=== PATIENT | female | born 1995 | race Caucasian/White ===

== ENCOUNTER 2016-08-30 13:22 | Emergency (ER) | payer OTHER ==
[2016-08-30 13:38] VITALS: BP 118/62
--- NOTE | 2016-08-30 13:59 | ER Document Report ---
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 She was seen at [facility] There is no saddle anesthesia , there is some discomfort in the posterior aspect of both thighs. I saw her get up out of the chair and she is slow and moves deliberately bent over slightly from the waist. I have greeted and performed a rapid initial assessment of this patient. A comprehensive ED assessment, evaluation of the patient, analysis of test results , and completion of the medical decision making process will be contacted by additional ED providers. TRAVEL OUTSIDE OF THE [place] IN LAST 30 DAYS: No - Related Data Allergies/Adverse Reactions: ceftriaxone sodium [From Rocephin] Allergy (Verified 11/03/15 03:02) Sulfa (Sulfonamide Antibiotics) Allergy (Verified 11/03/15 03:02) Physical Exam - Vital signs Vitals: Temp Pulse Resp BP Pulse Ox 98.0 F 73 14 118/62 98 08/30/16 13:37 08/30/16 13:37 08/30/16 13:37 08/30/16 13:37 08/30/16 13:37 Course - Vital Signs Vital signs: Temp Pulse Resp BP Pulse Ox 98.0 F 73 14 118/62 98 08/30/16 13:37 08/30/16 13:37 08/30/16 13:37 08/30/16 13:37 08/30/16 13:37
--- NOTE | 2016-08-30 16:51 | ER Document Report ---
[id number] PAIN Mode of Arrival: Ambulatory Notes: The patient is a 21-year-old female who presents with 2 weeks of right lower back pain. She was seen at [facility] and she is following up with physical therapy. She is taking Naprosyn and Robaxin with some relief of her symptoms, but her pain is still present. 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 She denies any new injuries, fevers, IVDA, saddle anesthesia, change in bowel or bladder, urinary symptoms, numbness or tingling. TRAVEL OUTSIDE OF THE [place] IN LAST 30 DAYS: No - Related Data Allergies/Adverse Reactions: ceftriaxone sodium [From Rocephin] Allergy (Verified 11/03/15 03:02) Sulfa (Sulfonamide Antibiotics) Allergy (Verified 11/03/15 03:02) Past Medical History - General Information source: Patient Last Menstrual Period: Constant - Social History Smoking Status: Never Smoker Cigarette use (# per day): No Chew tobacco use (# tins/day): No Frequency of alcohol use: None Drug Abuse: None Family History: Reviewed & Not Pertinent Patient has suicidal ideation: No Patient has homicidal ideation: No Renal/ Medical History: Denies: Hx Peritoneal Dialysis Review of Systems - Review of Systems Notes: REVIEW OF SYSTEMS: CONSTITUTIONAL: -fevers, -chills EENT: -eye pain, -difficulty swallowing, -nasal congestion CARDIOVASCULAR:-chest pain, -syncope. RESPIRATORY: -cough, -SOB GASTROINTESTINAL: -abdominal pain, - nausea, -vomiting, -diarrhea GENITOURINARY: -dysuria, -hematuria MUSCULOSKELETAL: +back pain, -neck pain SKIN: -rash or skin lesions. HEMATOLOGIC: -easy bruising or bleeding. LYMPHATIC: -swollen, enlarged glands. NEUROLOGICAL: -altered mental status or loss of consciousness, -headache, - neurologic symptoms PSYCHIATRIC: -anxiety, -depression. ALL OTHER SYSTEMS REVIEWED AND NEGATIVE. Physical Exam - Vital signs Vitals: Temp Pulse Resp BP Pulse Ox 98.0 F 73 14 118/62 98 08/30/16 13:37 08/30/16 13:37 08/30/16 13:37 08/30/16 13:37 08/30/16 13:37 - Notes Notes: PHYSICAL EXAMINATION: GENERAL: Well-appearing, well-nourished and in no acute distress. HEAD: Atraumatic, normocephalic. EYES: Pupils equal round and reactive to light, extraocular movements intact, sclera anicteric, conjunctiva are normal. ENT: nares patent, oropharynx clear without exudates. Moist mucous membranes. NECK: Normal range of motion, supple without lymphadenopathy LUNGS: Breath sounds clear to auscultation bilaterally and equal. No wheezes rales or rhonchi. HEART: Regular rate and rhythm without murmurs ABDOMEN: Soft, nontender, normoactive bowel sounds. No guarding, no rebound. No masses appreciated. EXTREMITIES: Tenderness over right lateral paraspinal muscles. Normal range of motion, no pitting or edema. No cyanosis. NEUROLOGICAL: Cranial nerves grossly intact. Normal speech, normal gait. Normal sensory, motor, and reflex exams. PSYCH: Normal mood, normal affect. SKIN: Warm, Dry, normal turgor, no rashes or lesions noted. Course - Re-evaluation Re-evalutation: No red flag signs for low back pain. No signs of UTI on urinalysis. Will add Lidoderm patches and tell patient continue her Naprosyn, Robaxin and physical therapy. Patient left prior to her discharge instructions and prescription for Lidoderm patch. - Vital Signs Vital signs: Temp Pulse Resp BP Pulse Ox 98.0 F 73 14 118/62 98 08/30/16 13:37 08/30/16 13:37 08/30/16 13:37 08/30/16 13:37 08/30/16 13:37 - Laboratory Laboratory results interpreted by me: 08/30/16 14:25 Urine Blood MODERATE H Discharge - Discharge Clinical Impression: Back pain Qualifiers: Back pain location: low back pain Chronicity: acute Back pain laterality: right Sciatica presence: without sciatica Qualified Code(s): M54.5 - Low back pain Condition: Good Disposition: HOME, SELF-CARE Additional Instructions: LOW BACK PAIN: Three out of every four people will have an episode of disabling back pain during their lifetime. Most commonly the pain is due to straining of the muscles and ligaments in the low back. Usual treatment includes: (1) Rest on a firm surface. Avoid lying on your stomach. (2) Ice pack the painful area. After a few days, gentle heat may be used intermittently to relax the area, or ice packs can be continued. (3) Medication may be needed -- muscle relaxers and antiinflammatory medicines are commonly used. (4) As the back improves, exercises are prescribed to strengthen the back and abdominal muscles. Your doctor will advise you on the proper care for your back at each stage in your recovery. You may be better in a few days -- or healing may take several weeks. If new symptoms of a "herniated disc" (radiation of pain, numbness, or tingling down the back of the leg or weakness in the leg) occur, you should be re-examined. Further testing may be necessary. MUSCLE RELAXERS: Muscle relaxing medications are usually prescribed for acute muscle spasm or injury to the neck and back. They are often combined with antiinflammatory pain medication for increased relief. You may stop the muscle relaxer when the pain and stiffness have improved. Start the medication again if spasms recur. Muscle relaxers may cause drowsiness, especially with the first dose. Do not operate machinery or drive while under the effects of the medication. Most muscle relaxers last up to 24 hours. Do not combine the medication with alcohol. ICE PACKS: Apply ice packs frequently against the painful area. Many different schedules are recommended, such as "20 minutes on, 20 minutes off" or "one hour ice, two hours rest." If you need to work, you may need to go longer between ice treatments. You should plan to have the area ice packed AT LEAST one fourth of the time. The ice should be applied over the wrap, tape, or splint, or over a layer of cloth -- not directly against the skin. Some ice bags have a built-in cloth and can be put directly on the skin. WARM PACKS: After approximately two days, apply gentle heat (such as a heating pad or hot water bottle) for about 20 to 30 minutes about every two hours -- at least four times daily. Warmth and elevation will help you make a more rapid recovery , and will ease the pain considerably. Do not use HOT heat, and never apply heat for longer than 30 minutes. The continuous heat can invisibly damage skin and muscles -- even when no burn is seen on the surface. Damaged muscles can make you MORE sore. FOLLOW-UP CARE: If you have been referred to a physician for follow-up care, call the physician s office for an appointment as you were instructed or within the next two days. If you experience worsening or a significant change in your symptoms, notify the physician immediately or return to the Emergency Department at any time for re-evaluation. Prescriptions: Lidocaine [Lidoderm 5% (700 mg) Transdermal Patch] 1 patch TP DAILY #14 adh..patch
[2016-08-30 17:25] LABS: APPEARANCE,URINE SLIGHTLY-CLOUDY; BILIRUBIN,URINE NEGATIVE (NEGATIVE); GLUCOSE, URINE NEGATIVE (NEGATIVE); KETONES,URINE NEGATIVE (NEGATIVE); LEUKOCYTE ESTERASE,URINE NEGATIVE (NEGATIVE); NITRITE,URINE NEGATIVE (NEGATIVE); PROTEIN,URINE NEGATIVE (NEGATIVE); URINE SPECIFIC GRAVITY 1.024; UROBILINOGEN,URINE NEGATIVE mg/dL (<2.0)
== END 2016-08-30 17:34 | disposition home or self-care (01) ==
LOC: ER 13:22
DX: M54.5 Low back pain (principal); Z88.2 Allergy status to sulfonamides
CPT/HCPCS: 72110; 81001; 81025; 87086; 99283

== ENCOUNTER → 2017-12-15 | Day surgery (SDC) | payer OTHER ==
[~2017-12-15] MED LIST: BUPIVACAINE HCL 0.5 % INJ/PF 30 ML SDV ONE; LIDOCAINE 1% INJ-PF (10 MG/ML) 30 ML SDV ONE
--- NOTE | 2017-12-15 11:46 | Operative Report ---
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 Radiofrequency Ablation of bilateral L5 dorsal Ramus 2. Sacroiliac Joint Ablation - Lateral Branches of bilateral S1, S2, S3 DATE OF PROCEDURE: 15 Dec 2017 ANESTHESIA: Local COMPLICATIONS: None CONSENT: A full description of the procedure was provided including benefits as well as possible complications. All questions were answered and informed consent was given and signed. ASA guidelines for fasting were verified prior to sedation. PROCEDURE IN DETAIL The patient was brought into the fluoroscopy suite and carefully assisted into the prone position on the fluoroscopy table and allowed to adjust to a position of comfort. A grounding pad was placed on the right thigh. The low back and buttocks were widely prepped with a chloraprep solution, allowed to air dry and draped in standard sterile surgical fashion. Local anesthesia was provided by 12 mL of 1 % lidocaine delivered with a 25 g needle. PROCEDURE #1: Radiofrequency Ablation of Dorsal Ramus of bilateral L5. A 17g 100mm radiofrequency introducer needle was placed to the planned anatomic target, guided with intermittent fluoroscopy with a perpendicular approach, to terminally place at the bilateral sacral ala. The stylets were removed and the radiofrequency probes with a 4mm active tip were then inserted. Needle tip position of the probes were verified in the AP, oblique, and lateral views. At each site, the medial branch nerve was stimulated at 2Hz to a maximum of 1- 2volts determined to finalize safe needle and electrode placement. The patient was awake and responsive during this portion of the procedure. Each target was anesthetized with 2mL of 2 % Sensorcaine anesthesia for lesioning and then each target was lesioned at 80 degrees Celsius for 2 minutes and 30 seconds. Tissue impedences were noted to be between 250 and 500 Ohms. PROCEDURE #2: Radiofrequency Ablation of bilateral S1, S2, S3 Lateral Branches Using the AP fluoroscopic view for visualization of the lateral PSFA as defined by the pre-placed 27-gauge Quincke needles, appropriate skin starting positions were defined. Using the PSFA as a "clock-face", the positions were: S1; Right = 1 oclock, 5 oclock S2; Right = 1 oclock, 5 oclock S3; Right = 1 3 oclock Using fluoroscopic guidance, a 17g introducer needle was inserted sequentially onto the target positions described above until the introducer tip touched the bony surface of the sacrum. The stylet was withdrawn from the introducer and the radiofrequency probe with a 4 mm active tip was fully inserted into the introducer. A lateral view was obtained for standard reference. At each of the targets, needle placement was verified with the use of multi-planar fluoroscopy. The needle tip position was approximately 7 - 10mm lateral to the PSFA as determined by using an Epsilon ruler. At each site, the lateral branch nerve was stimulated at 2 Hz to a maximum of 1- 2 volts determined to finalize safe needle and electrode placement. The patient was awake and responsive during this portion of the procedure. Each target was anesthetized with 2 mL of 2 % Sensorcaine anesthesia for lesioning and then each target was lesioned at 80 degrees Celsius for 2 minutes and 30 seconds. Tissue impedences were noted to be between 250- 500 Ohms. At the conclusion of the lesioning the needles were removed and bandages placed over the needle placement sites and the patient returned to the supine position on a stretcher and transported to the recovery room without hemodynamic, neurologic, or allergic reactions. Fluoroscopic images were printed for hard copy recording and digitally archived. FLUOROSCOPIC INTERPRETATION: Appropriate epidurogram obtained. Appropriate lesioning of the 10 targets noted. POST PROCEDURE EVALUATION: The patient was comfortable in the recovery room. The patient is aware that pain may worsen before remitting and 4 6 weeks may be required prior to the onset of pain relief. IMPRESSION: 1. Technically successful sacral lateral branch, lumbar dorsal ramus for denervation from L5-S3 on the bilateral without complication. 2. RTC in 2 weeks. 3. Estimated Blood Loss: None 4. Fluoroscopy time: 30 seconds
== END ==
LOC: RAD 10:19
PROVIDERS: ATTEND Family Medicine
DX: M47.818 Spondylosis without myelopathy or radiculopathy, sacral and sacrococcygeal region (principal)
CPT/HCPCS: 64635 ×2; 64640 ×6; J3490 ×2

== ENCOUNTER 2018-03-07 07:17 | Day surgery (SDC) | payer OTHER ==
[~2018-03-07 07:17] MED LIST changes: -BUPIVACAINE HCL 0.5 % INJ/PF 30 ML SDV ONE; +CLINDAMYCIN 600 MG/D5W RTU 600 MG/50 ML RTUPB IV PRN; +FENTANYL CITRATE INJ/PF 100 MCG/2 ML AMPUL ONE; +LACTATED RINGERS 1000 ML IV PRN; -LIDOCAINE 1% INJ-PF (10 MG/ML) 30 ML SDV ONE; +LIDOCAINE 2% INJ-PF (20 MG/ML) 10 ML AMPUL ONE; +MIDAZOLAM 2 MG/2 ML INJ ONE; +ONDANSETRON HCL INJ/PF 4 MG/2 ML SDV ONE; +PROPOFOL INJ 200 MG/20 ML VIAL IV ONE
[2018-03-07] MEDS ORDERED: BUPIVACAINE HCL 0.25% /EPINEPHRINE INJ/PF 30 ML SDV ONE (07:39)
[2018-03-07] MEDS ORDERED: LIDOCAINE 1% INJ-PF (10 MG/ML) 30 ML SDV ONE (07:39)
[2018-03-07] MEDS ORDERED: SODIUM BICARBONATE 8.4% INJ 50 MEQ/50 ML DISP.SYRIN ONE (07:39)
--- NOTE | 2018-03-07 07:53 | RADIOLOGY REPORT (SQ) ---
EXAM DESCRIPTION: XR CHEST 1 VIEW COMPLETED DATE/TME: 03/07/2018 00:00 CLINICAL HISTORY: Preoperative evaluation. COMPARISON: None. FINDINGS: Single frontal view of the chest. The cardiomediastinal silhouette has normal size and contour. No consolidation, pneumothorax, or pleural effusion. No displaced rib fractures identified. Upper abdominal soft tissues are unremarkable. IMPRESSION: 1. No acute pulmonary process identified.
[2018-03-07 07:54] LABS: APPEARANCE,URINE CLOUDY; BILIRUBIN,URINE NEGATIVE (NEGATIVE); GLUCOSE, URINE NEGATIVE (NEGATIVE); KETONES,URINE NEGATIVE (NEGATIVE); LEUKOCYTE ESTERASE,URINE NEGATIVE (NEGATIVE); NITRITE,URINE NEGATIVE (NEGATIVE); PROTEIN,URINE 30 mg/dL (NEGATIVE); URINE SPECIFIC GRAVITY 1.028
[2018-03-07 07:55] LABS: COLOR,URINE YELLOW
[2018-03-07 08:30] LABS: HEMATOCRIT 39.2 % (36.0-47.0); HEMOGLOBIN 13.7 g/dL (12.0-15.5); MEAN CORPUSCULAR HEMOGLOBIN 32.5 pg (27.0-33.4); MEAN CORPUSCULAR HGB CONC 34.9 g/dL (32.0-36.0); MEAN CORPUSCULAR VOLUME 93 fl (80-97); PLATELET COUNT 158 10^3/uL (150-450); RED BLOOD COUNT 4.21 10^6/uL (3.72-5.28); RED CELL DISTRIBUTION WIDTH 12.4 % (11.5-14.0); WHITE BLOOD COUNT 8.8 10^3/uL (4.0-10.5)
[2018-03-07 08:44] LABS: INTERNATIONAL RATION (INR) 0.98; PROTHROMBIN TIME 13.5 SEC (11.4-15.4)
[2018-03-07 09:24] LABS: PARTIAL THROMBOPLASTIN TIME 27.5 SEC (23.5-35.8)
[2018-03-07] MEDS ORDERED: DIPHENHYDRAMINE HCL 50 MG/ML VIAL IV PRN (10:30)
[2018-03-07] MEDS ORDERED: MORPHINE SULFATE 10 MG/ML INJ IV PRN (10:30)
[2018-03-07] MEDS ORDERED: ONDANSETRON HCL INJ/PF 4 MG/2 ML SDV IV PRN ×2 (10:30→12:16)
[2018-03-07] MEDS ORDERED: FENTANYL CITRATE INJ/PF 100 MCG/2 ML AMPUL IV PRN ×3 (10:30)
[2018-03-07] MEDS ORDERED: MEPERIDINE HCL/PF INJ 25 MG/1 ML DISP.SYRIN IV PRN (10:30)
[2018-03-07] MEDS ORDERED: PROMETHAZINE HCL INJ 25 MG/1 ML VIAL IV PRN ×2 (10:30)
[2018-03-07] MEDS ORDERED: PROPOFOL INJ 200 MG/20 ML VIAL IV ONE (11:07)
[2018-03-07] MEDS ORDERED: CEFAZOLIN INJ 1 GM VIAL ONE (11:10)
[2018-03-07] MEDS: FENTANYL CITRATE INJ/PF 100 MCG/2 ML AMPUL ONE ×2 (11:11→11:12)
[2018-03-07] MEDS ORDERED: CLINDAMYCIN PHOSPHATE INJ 300 MG/2 ML SDV ONE (11:19)
--- NOTE | 2018-03-07 11:31 | OPERATIVE REPORT E ---
Operative Report NAME: BHAVYA XIONG : 1995 AGE: 22Y DATE OF SURGERY: 03/07/2018 ROOM: PREOPERATIVE DIAGNOSIS: 1. Neuropathic pain. 2. Back and lower extremity pain. POSTOPERATIVE DIAGNOSIS: 1. Neuropathic pain. 2. Back and lower extremity pain. OPERATION: Surgical implantation of right and left spinal cord stimulator and electrodes. Surgical implantation of programmable rechargeable pulse generator, fluoroscopy and complex programming. SURGEON: LAYO TOUSSAINT M.D. TOLL MECHANIC: Simin Dyson MD ANESTHESIA: MAC. BLOOD LOSS: Minimal. SPECIMENS REMOVED: None. COMPLICATIONS: None. INDICATIONS: Satisfactory outpatient trial of spinal cord stimulation. PROCEDURE NOTE: After obtaining informed consent and advising the patient of the risks and benefits, including serious neurological injury, bleeding, infection, paralysis, failure to obtain pain relief, allergic reaction, and , she was taken to the operating room and placed comfortably in the prone position. Monitors were applied, MAC anesthesia was administered. She was prepped and draped in the usual fashion with chlorhexidine with appropriate drying time. Fluoroscopy was used to evaluate the lumbar spine and suitable entrance site targeted for the T12-L1 interspace was identified. The skin anesthetized distal to this in the midline as well as over the left flank region at the predetermined site for her programmable rechargeable pulse generator. Sharp and blunt dissection was performed in both locations. Hemostasis obtained with electrocautery as necessary. Once a suitable working place was obtained in the midline incision, fluoroscopy was again utilized to anesthetize down to the T12-L1 interspace through the paraspinal musculatures for a good placement of the Touhy needles. The Touhy needles were placed sequentially left and right as were the electrodes. The electrodes were advanced up to the top of T8. Trial stimulation was initiated after waking the patient moderately so she could cooperate and communicate. Simultaneously pursestrings were placed around the needles, followed by distal stay sutures. Once suitable stimulation was obtained in the appropriate and desired location, the patient was resedated. The needles were removed sequentially, left and right, followed by a tying of the pursestrings and placement of the anchors, and tying of the distal stay sutures. All wounds were copiously irrigated. The subcutaneous tissue from the pulse generator pocket was anesthetized with 1% lidocaine to the midline incision. Both wounds were again further inspected for hemostasis. A pulse generator pocket was checked for sizing and was satisfactory. The leads were then tunneled and connected. Good connectivity impedance was obtained. The decision was made to further irrigate and complete the procedure. Both incisions were closed with interrupted inverted vertical mattress sutures using 3-0 Polysorb. The midline incision was taped with Dermabond tape and cement. The flank incision was further closed with a running subcuticular 4-0 followed Dermabond tape and cement. When this was dry, Telfa was placed, followed by sponge Tegaderm. The patient was then taken to the recovery room for further postoperative care. DICTATING PHYSICIAN: LAYO TOUSSAINT M.D. [id number] PHY#: [id number] ID: [id number] JOB#: [id number] ACCT: [id number] cc:LAYO TOUSSAINT M.D. >
[2018-03-07] MEDS ORDERED: OXYCODONE-ACETAMINOPHEN 5-325 MG TABLET PO PRN (12:15)
[2018-03-07] MEDS ORDERED: CLINDAMYCIN 300 MG/D5W RTU 300 MG/50 ML RTUPB IV PRN ×2 (12:16→12:17)
--- NOTE | 2018-03-07 12:53 | RADIOLOGY REPORT (SQ) ---
EXAM DESCRIPTION: NO CHG FLUORO; THORACOLUMBAR SPINE AP/LAT COMPLETED DATE/TIME: 03/07/2018 11:01 am REASON FOR STUDY: SPINAL STIMULATOR PLCMT ASST WITH FLUORO IN OR G89.4 CHRONIC PAIN SYNDROME COMPARISON: None. FLUOROSCOPY TIME: 2.4 minutes 9 images saved to PACS. TECHNIQUE: Intra-operative images acquired during surgical procedure to evaluate progress. NUMBER OF IMAGES: 9 LIMITATIONS: None. FINDINGS: Images reveal intraoperative placement of spinal leads which grossly project in the dorsal spinal epidural space. Actual level of the leads difficult to assess given the coned nature of thes e images. IMPRESSION: IMAGE(S) OBTAINED DURING PROCEDURE. COMMENT: Quality ID [id number]: Final reports for procedures using fluoroscopy that document radiation exp osure indices, or exposure time and number of fluorographic images (if radiation exposure indices are not available) Please consult full operative report of the attending physician for description of the procedure. TECHNICAL DOCUMENTATION: JOB ID: [id number] [employer]- All Rights Reserved Reading location - IP/workstation name: [email or web address]
--- NOTE | 2018-03-07 12:53 | RADIOLOGY REPORT (SQ) ---
EXAM DESCRIPTION: NO CHG FLUORO; THORACOLUMBAR SPINE AP/LAT COMPLETED DATE/TIME: 03/07/2018 11:01 am REASON FOR STUDY: SPINAL STIMULATOR PLCMT ASST WITH FLUORO IN OR G89.4 CHRONIC PAIN SYNDROME COMPARISON: None. FLUOROSCOPY TIME: 2.4 minutes 9 images saved to PACS. TECHNIQUE: Intra-operative images acquired during surgical procedure to evaluate progress. NUMBER OF IMAGES: 9 LIMITATIONS: None. FINDINGS: Images reveal intraoperative placement of spinal leads which grossly project in the dorsal spinal epidural space. Actual level of the leads difficult to assess given the coned nature of thes e images. IMPRESSION: IMAGE(S) OBTAINED DURING PROCEDURE. COMMENT: Quality ID [id number]: Final reports for procedures using fluoroscopy that document radiation exp osure indices, or exposure time and number of fluorographic images (if radiation exposure indices are not available) Please consult full operative report of the attending physician for description of the procedure. TECHNICAL DOCUMENTATION: JOB ID: [id number] All Rights Reserved Reading location - IP/workstation name: [email or web address]
[2018-03-07 13:53] VITALS: BP 91/48
== END 2018-03-07 13:54 | disposition home or self-care (01) ==
LOC: OROUT 07:17
PROVIDERS: ATTEND Pain Medicine Interventional Pain Medicine
DX: G89.4 Chronic pain syndrome (principal); M54.16 Radiculopathy, lumbar region; M47.817 Spondylosis without myelopathy or radiculopathy, lumbosacral region; M96.1 Postlaminectomy syndrome, not elsewhere classified; M21.371 Foot drop, right foot; Z79.899 Other long term (current) drug therapy; Z86.14 Personal history of Methicillin resistant Staphylococcus aureus infection; Z87.820 Personal history of traumatic brain injury; Z87.891 Personal history of nicotine dependence
CPT/HCPCS: 36415; 85027; 85610; 85730; 81025; 81001; 71045; 72080; 63685; 63650; C1778; J2250; J3490 ×5; J3010; J2405; J2704; 300; J0690